=== PATIENT | male | born 1965 | race Caucasian/White ===

== ENCOUNTER → 2020-01-05 | Outpatient (CLI) | payer BC ==
[~2020-01-05] MED LIST: ACET600C5 PO; ASCO100018 PO; ASCO100019 PO; ASHW300C PO; CHOL100011 PO; MULT-658 PO; OMEG1CAP23 PO; PSYL0.5215 PO; ZINC50CA PO
== END | disposition home or self-care (01) ==
LOC: STAR 14:47
PROVIDERS: ATTEND Surgery
DX: Z01.812 Encounter for preprocedural laboratory examination (principal); Z20.828 Contact with and (suspected) exposure to other viral communicable diseases; K40.90 Unilateral inguinal hernia, without obstruction or gangrene, not specified as recurrent
CPT/HCPCS: 36415; 87635

== ENCOUNTER 2020-01-10 11:12 | Day surgery (SDC) | payer BC ==
[~2020-01-10] VITALS: Ht 180.3 cm; Wt 105.1 kg
[~2020-01-10 11:12] MED LIST changes: +FENTANYL PF 250 MCG/5ML ONE; +MIDAZOLAM 1 MG/ML, 2ML ONE
[2020-01-10] MEDS ORDERED: CHLORHEXIDINE 15 ML UDC ONE (11:25)
[2020-01-10] MEDS ORDERED: CHLORHEXIDINE 15 ML UDC MM ONE (11:30)
[2020-01-10] MEDS ORDERED: LACTATED RINGERS 1,000 ML IV SCH (11:30)
[2020-01-10] MEDS ORDERED: BUPIVACAINE/PF 0.5% ONE (11:39)
[2020-01-10] MEDS ORDERED: EPINEPHRINE 1 MG/ML, 1ML ONE (11:40)
[2020-01-10] MEDS ORDERED: KETOROLAC 30 MG/1 ML ONE ×2 (12:18→14:03)
[2020-01-10] MEDS ORDERED: MEPERIDINE/PF 25MG/0.5ML IVPush PRN (12:30)
[2020-01-10] MEDS ORDERED: ALBUTEROL SULFATE 2.5 MG/3 ML NPPB PRN (12:30)
[2020-01-10] MEDS ORDERED: LORazepam 2 MG/ML, 1ML IVPush PRN (12:30)
[2020-01-10] MEDS ORDERED: METHOCARBAMOL 1,000 MG in DEXTROSE 5% 100 ML IV PRN (12:30)
[2020-01-10] MEDS ORDERED: HYDROmorphone 1 MG/ML, 1ML INJ IVPush PRN (12:30)
[2020-01-10] MEDS ORDERED: PROMETHAZINE 25 MG/ML, 1ML IVPush PRN (12:30)
[2020-01-10] MEDS ORDERED: OXYcodone 5 MG/5 ML ORAL.SOL UDC PO PRN (12:30)
[2020-01-10] MEDS ORDERED: hydrALAzine 20 MG/ML, 1ML IV PRN (12:30)
[2020-01-10] MEDS ORDERED: ACETAMINOPHEN 325 MG TABLET PO PRN (12:30)
[2020-01-10] MEDS ORDERED: LABETALOL 5MG/ML, 20ML IV PRN (12:30)
[2020-01-10] MEDS ORDERED: FENTANYL PF 100 MCG/2ML IV PRN (12:30)
[2020-01-10] MEDS ORDERED: ONDANSETRON 2MG/ML, 2ML ONE (14:03)
[2020-01-10] MEDS ORDERED: PROPOFOL 10 MG/ML, 20ML ONE (14:03)
[2020-01-10] MEDS ORDERED: DEXAMETHASONE 4 MG/ML, 1ML ONE (14:03)
[2020-01-10] MEDS ORDERED: CEFAZOLIN 1,000 MG ONE (14:03)
[2020-01-10] MEDS ORDERED: LIDOCAINE-MPF 2% ,5ML ONE (14:03)
[2020-01-10] MEDS ORDERED: NEOSTIGMINE 1 MG/ML, 10ML ONE (14:03)
[2020-01-10] MEDS ORDERED: ROCURONIUM 10MG/ML,5ML ONE (14:03)
[2020-01-10] MEDS ORDERED: GLYCOPYRROLATE 0.2MG/1ML, 5ML ONE (14:03)
[2020-01-10] MEDS ORDERED: OXYcodone 5 MG/5 ML ORAL.SOL UDC ONE (14:32)
[2020-01-10] MEDS ORDERED: ACETAMINOPHEN 650 MG/20.3 ML UDC ONE (14:32)
== END 2020-01-10 17:00 | disposition home or self-care (01) ==
LOC: OUT 11:12
PROVIDERS: ATTEND Surgery
DX: K40.90 Unilateral inguinal hernia, without obstruction or gangrene, not specified as recurrent (principal); D17.6 Benign lipomatous neoplasm of spermatic cord; Z79.899 Other long term (current) drug therapy; Z82.49 Family history of ischemic heart disease and other diseases of the circulatory system; Z80.9 Family history of malignant neoplasm, unspecified
CPT/HCPCS: 49650; C1781; J0171; J0690; J1100; J1885; J2250; J2405; J2704; J2710; J3010; J7120; S2900